=== PATIENT | female | born 1960 | race Asian ===

== ENCOUNTER → 2017-08-24 | Outpatient (CLI) | payer BC ==
[~2017-08-24] MED LIST: AMOXICILLIN 8751 TAB PO; LUNESTA1 MG PO
== END ==
LOC: MC.RAD 11:00
DX: Z12.31 Encounter for screening mammogram for malignant neoplasm of breast (principal)

== ENCOUNTER → 2018-12-24 | Outpatient (CLI) | payer BC | LOC: MC.RAD 14:00 | DX: Z12.31 Encounter for screening mammogram for malignant neoplasm of breast (principal) ==

== ENCOUNTER → 2020-01-12 | Outpatient (CLI) | payer BC | LOC: MC.RAD 16:31 | DX: Z12.31 Encounter for screening mammogram for malignant neoplasm of breast (principal) ==

== ENCOUNTER → 2021-01-14 | Outpatient (CLI) | payer BC | LOC: MC.RAD 07:00 | DX: Z12.31 Encounter for screening mammogram for malignant neoplasm of breast (principal) ==

== ENCOUNTER → 2022-02-11 | Outpatient (CLI) | payer BC | LOC: MC.RAD 09:39 | DX: Z12.31 Encounter for screening mammogram for malignant neoplasm of breast (principal) ==

== ENCOUNTER 2022-03-28 06:39 | Day surgery (SDC) | payer BC ==
[~2022-03-28] VITALS: Ht 162.6 cm; Wt 72.8 kg
[2022-03-28] MEDS ORDERED: COREG 25MG25 MG/TAB PO (07:01)
[2022-03-28] MEDS ORDERED: BENICAR40 MG PO (07:01)
[2022-03-28] MEDS ORDERED: NORVASC2.5 MG PO (07:01)
[2022-03-28] MEDS ORDERED: PRILOSEC 20MG20 MG PO (07:02)
[2022-03-28 07:03] VITALS: BP 137/77; PULSE 59; TEMP 97.1
[2022-03-28 08:25] VITALS: BP 114/72; PULSE 70; TEMP 97.2
[2022-03-28 08:40] VITALS: BP 122/76; PULSE 63
[2022-03-28 08:55] VITALS: BP 132/64; PULSE 63
--- NOTE | 2022-03-28 08:55 | NUR ---
0825: Patient arrived back into [facility] following endo procedure. Report received from KEVIN Sánchez. Patient alert and awake. Requesting sprite and bluebery muffin. Vital signs stable. Call light left within reach. at bedside. 0840: MD in to see patient. Patient vitally stable. Tolerating food and drink. 0855: Patient tolerated food and drink well. Meets discharge criteria went through discharge instructions with patient and family. Questions answered. IV removed without complications. Patient escorted to patient entrance via wheelchair and left in the care of their family.
[2022-03-28 09:03] VITALS: BP 120/74; PULSE 63
== END 2022-03-28 08:59 | disposition home or self-care (01) ==
LOC: SDCO 06:39
DX: Z12.11 Encounter for screening for malignant neoplasm of colon (principal); K21.9 Gastro-esophageal reflux disease without esophagitis; Z83.71 Family history of colonic polyps
CPT/HCPCS: J2704; J7030

== ENCOUNTER → 2022-07-17 | Outpatient (CLI) | payer BC ==
[~2022-07-17] MED LIST changes: +BENICAR40 MG PO; +COREG 25MG25 MG/TAB PO; +NORVASC2.5 MG PO; +PRILOSEC 20MG20 MG PO
== END ==
LOC: COL.RAD 15:55
DX: M43.16 Spondylolisthesis, lumbar region (principal); M51.36 Other intervertebral disc degeneration, lumbar region

== ENCOUNTER 2023-01-14 07:05 | Outpatient (CLI) | payer BC ==
[~2023-01-14] VITALS: Ht 162.6 cm; Wt 75.3 kg
[~2023-01-14 07:05] MED LIST changes: +B-12 250 MCG PO; +CRANBERRY500 M3 PO; +VITAMIN D 50,1.25 MG PO
[2023-01-14 07:28] VITALS: BP 126/77; PULSE 62; TEMP 98
[2023-01-14 08:15] VITALS: BP 151/79; PULSE 57
[2023-01-14 08:30] VITALS: BP 144/81; PULSE 55
[2023-01-14 08:45] VITALS: BP 136/78; PULSE 55
[2023-01-14 09:00] VITALS: BP 126/76; PULSE 55
[2023-01-14 09:13] LABS: GLUCOSE,CSF 65 mg/dL (40-70); TOTAL PROTEIN,CSF 28 mg/dL (15-45)
[2023-01-14 09:15] VITALS: BP 126/75; PULSE 55
[2023-01-14 09:59] LABS: CSF APPEARANCE CLEAR; CSF COLOR COLORLESS
[2023-01-14 10:00] LABS: CSF RBC 0 /mm3 (0-0)
[2023-01-14 10:23] LABS: CSF MONONUCLEAR 100 % (70-100); CSF POLYMORPHONUCLEAR 0 % (0-6)
[2023-01-19 10:37] LABS: ALBUMIN CSF 17.2 mg/dL (<=27.0); ALBUMUN SERUM 4100 mg/dL (())
[2023-01-19 10:53] LABS: IGG,SERUM 894 mg/dL (()); IGG/ALBUMIN SERUM 0.22 (<=0.40)
[2023-01-19 11:00] LABS: CSF IGG/ALBUMIN 0.11 (<=0.21); CSF,IGG 1.9 mg/dL (<=8.1)
[2023-01-19 14:02] LABS: CSF OLIG BD INTERPRETATION 1 bands (<2); SE OLIGOCLONAL BANDING 1 bands (())
== END 2023-01-14 10:36 | disposition home or self-care (01) ==
LOC: COL.RAD 07:05
PROVIDERS: Psychiatry & Neurology Neurology
DX: S14.119A Complete lesion at unspecified level of cervical spinal cord, initial encounter (principal); R90.89 Other abnormal findings on diagnostic imaging of central nervous system

== ENCOUNTER → 2023-01-16 | Outpatient (CLI) | payer BC | LOC: MHCPAIN 09:40 | DX: M79.602 Pain in left arm (principal); M47.812 Spondylosis without myelopathy or radiculopathy, cervical region; M99.9 Biomechanical lesion, unspecified; R20.0 Anesthesia of skin | CPT/HCPCS: G0463 ==

== ENCOUNTER → 2023-02-16 | Outpatient (CLI) | payer BC | LOC: MHCPAIN 10:21 | DX: M79.602 Pain in left arm (principal); G95.89 Other specified diseases of spinal cord | CPT/HCPCS: G0463 ==

== ENCOUNTER → 2023-03-06 | Outpatient (CLI) | payer BC | LOC: MC.RAD 07:43 | DX: Z12.31 Encounter for screening mammogram for malignant neoplasm of breast (principal) ==

== ENCOUNTER → 2024-03-08 | Outpatient (CLI) | payer BC | LOC: MC.RAD 07:32 | DX: Z12.31 Encounter for screening mammogram for malignant neoplasm of breast (principal) ==